=== PATIENT | male | born 1985 | race Caucasian/White ===

== ENCOUNTER 2017-12-25 15:03 | Emergency (ER) | payer BC ==
[2017-12-25] MEDS ORDERED: Metoclopramide IV* 5 MG/ML 2 ML VIAL IV ONE (15:19)
[2017-12-25] MEDS ORDERED: diPHENhydraMINE IV* 50 MG/ML 1 ml VIAL (BENADRYL) IV ONE (15:19)
[2017-12-25] MEDS ORDERED: NS 0.9% 1000 ML* 1,000 ML IV ONE (15:19)
[2017-12-25] MEDS ORDERED: Ketorolac INJ* 30 MG/ML 1 ML VIAL IV PUSH ONE (15:19)
[2017-12-25 16:05] LABS: Hematocrit 44 % (42-52); Hemoglobin 14.8 g/dl (14.0-18.0); Mean Corpuscular HGB Conc 34 g/dl (31-36); Mean Corpuscular Hemoglobin 28 pg (27-31); Mean Corpuscular Volume 83 fL (80-94); Mean Platelet Volume 7.6 um3 (7.4-10.4); Platelet Count 237 10^3/ul (150-450); Red Blood Count 5.24 10^6/ul (4.00-5.40); Red Cell Distribution Width 14 % (10.5-15); White Blood Count 5.6 10^3/ul (3.5-10.8)
[2017-12-25 16:07] LABS: ABS Basophils 0 10^3/ul (0-0.2); ABS Eosinophils 0.2 10^3/ul (0-0.6); ABS Lymphocytes 2.3 10^3/ul (1.0-4.8); ABS Monocytes 0.4 10^3/ul (0-0.8); ABS Neutrophils 2.7 10^3/ul (1.5-7.7); ABS Nucleated RBC 0 10^3/ul; Eosinophil % 3.2 % (0-6); Nucleated Red Blood Cells % 0.1
[2017-12-25 16:15] LABS: EGFR Non-African American 83.3 (>60)
--- NOTE | 2017-12-25 16:32 | RAD ---
Indication: Frontal and maxillary pain. CT of the paranasal sinuses was obtained in the axial plane. Coronal and sagittal reconstructed images were obtained. The frontal sinuses are clear. There is some opacification of the left ethmoid air cells. Sphenoid sinuses are clear. Maxillary sinuses are clear. No nasal septal deviation is noted. No paradoxical turn's of the middle turbinates are noted. No justin bullosa is noted. Ostiomeatal units appear patent bilaterally. No nasal septal deviation is noted. Pterygoid plates and maxilla are unremarkable. Mastoid air cells are clear. Visualized cervical spine is unremarkable. IMPRESSION: Minimal ethmoid sinusitis on the left is noted.
[2017-12-25 17:05] VITALS: BP 119/70
--- NOTE | 2017-12-25 20:19 | ED ---
Aidan Mohan Natalie, scribed for Amandeep Sharma MD on 12/25/17 at 1537 . 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 The headache is located behind his left eye radiating to the parietal region of his head. The throbbing pain is rated 10/10 in severity. The pain is aggravated by light and exertion. The pt currently has a headache. He denies a fever. He has not seen a medical professional since he's been having this pain. He does not have any other medical hx. Smoker. - History Of Current Complaint Chief Complaint: EDHeadache Stated Complaint: HEADACHE/CHEMICAL EXPOSURE Time Seen by Provider: 12/25/17 15:19 Hx Obtained From: Patient Onset/Duration: Sudden Onset, Started days ago, Still Present Initially Headache Was: Initial Pain Scale(0-10)= - 10 Currently Pain Is: Current Pain Scale(0-10)= - 10 Timing: Intermittent, Lasting: Character: Throbbing Location of Headache: Parietal - left, Other: - behind left eye Aggravating Factor: Exertion, Bright Lights Allevating Factors: Nothing Associated Signs And Symptoms: Negative - fever, Other (Noted In Comments) - photophobia - Allergies/Home Medications Allergies/Adverse Reactions: Allergies Allergy/AdvReac Type Severity Reaction Status Date / Time azithromycin [From Zithromax] Allergy Diarrhea Verified 12/25/17 15:25 PMH/Surg Hx/FS Hx/Imm Hx Endocrine/Hematology History: Denies: Hx Diabetes Cardiovascular History: Denies: Hx Congenital Heart Disease, Hx Hypertension Infectious Disease History: No Infectious Disease History: Denies: Traveled Outside the [place] in Last 30 Days - Family History Known Family History: Positive: Diabetes - Social History Alcohol Use: Weekly Substance Use Type: Reports: None Smoking Status (MU): Current Some Day Smoker Review of Systems Negative: Fever Positive: Photophobia Positive: Headache All Other Systems Reviewed And Are Negative: Yes Physical Exam - Summary Physical Exam Summary: Appearance: Well appearing, no pain distress Skin: warm, dry, reflects adequate perfusion Head/face: normal, left sided maxilla tender to percussion, temporal arteries intact Eyes: EOMI, VINCENZO, globes soft ENT: normal Neck: supple, non-tender Respiratory: CTA, breath sounds present Cardiovascular: RRR, pulses symmetrical Abdomen: non-tender, soft Bowel Sounds: present Musculoskeletal: normal, strength/ROM intact Neuro: normal, sensory motor intact, A&Ox3 Triage Information Reviewed: Yes Vital Signs On Initial Exam: Initial Vitals Temp Pulse Resp BP Pulse Ox 98.9 F 60 18 136/91 95 12/25/17 15:14 12/25/17 15:14 12/25/17 15:14 12/25/17 15:14 12/25/17 15:14 Vital Signs Reviewed: Yes Diagnostics - Vital Signs Vital Signs Temp Pulse Resp BP Pulse Ox 12/25/17 15:14 98.9 F 60 18 136/91 95 - Laboratory Lab Results: Lab Results 12/25/17 12/25/17 Range/Units 15:49 15:49 WBC 5.6 (3.5-10.8) 10^3/ul RBC 5.24 (4.00-5.40) 10^6/ul Hgb 14.8 (14.0-18.0) g/dl Hct 44 (42-52) % MCV 83 (80-94) fL MCH 28 (27-31) pg MCHC 34 (31-36) g/dl RDW 14 (10.5-15) % Plt Count 237 (150-450) 10^3/ul MPV 7.6 (7.4-10.4) um3 Neut % (Auto) 48.3 (38-83) % Lymph % (Auto) 40.0 (25-47) % [place] % (Auto) 7.8 H (0-7) % Eos % (Auto) 3.2 (0-6) % Baso % (Auto) 0.7 (0-2) % Absolute Neuts (auto) 2.7 (1.5-7.7) 10^3/ul Absolute Lymphs (auto) 2.3 (1.0-4.8) 10^3/ul Absolute Monos (auto) 0.4 (0-0.8) 10^3/ul Absolute Eos (auto) 0.2 (0-0.6) 10^3/ul Absolute Basos (auto) 0 (0-0.2) 10^3/ul Absolute Nucleated RBC 0 10^3/ul Nucleated RBC % 0.1 Sodium 138 (135-145) mmol/L Potassium 4.3 (3.5-5.0) mmol/L Chloride 105 (101-111) mmol/L Carbon Dioxide 28 (22-32) mmol/L Anion Gap 5 (2-11) mmol/L BUN 13 (6-24) mg/dL Creatinine 1.04 (0.67-1.17) mg/dL Est GFR ( Amer) 100.8 (>60) Est GFR (Non-Af Amer) 83.3 (>60) BUN/Creatinine Ratio 12.5 (8-20) Glucose 96 (70-100) mg/dL Calcium 9.6 (8.6-10.3) mg/dL Result Diagrams: 12/25/17 15:49 12/25/17 15:49 Lab Statement: Any lab studies that have been ordered have been reviewed, and results considered in the medical decision making process. - CT Sinus CT CT Interpretation: Positive (See Comments) - Minimal ethmoid sinusitis on the left is noted. ED physician has reviewed this report. Re-Evaluation - Re-Evaluation Second Eval Re-Evaluation Time: 17:00 Change: Improved - The pt's headache has resolved in the ED. He will be discharged home. Headache Course/Dx - Course Course Of Treatment: Patient with headache, tearing behind the left eye. 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 CT scan of the sinuses shows no significant sinusitis. He was treated with standard treatment here and had full relief of his headache. He will be prescribed as needed promethazine and will follow-up with his primary care physician. - Diagnoses Differential Diagnosis/HQI/PQRI: Sinus Headache, Other - Cluster headache Provider Diagnoses: Cluster headache Discharge - Sign-Out/Discharge Documenting (check all that apply): Discharge/Admit/Transfer - Pt will be discharged home. - Discharge Plan Condition: Improved Disposition: HOME Prescriptions: Promethazine TAB* [Phenergan Tab*] 25 mg PO Q6H PRN #20 tab PRN Reason: headache/nausea Patient Education Materials: Cluster Headache (ED) Referrals: [facility] [Outside] [facility] [Outside] Additional Instructions: Prescribed medication may make you drowsy. Do not drive while taking. Medication can be taken with ibuprofen, Benadryl for more severe symptoms. Taking with water and some caffeine may also help. Return with fever, persistent vomiting, uncontrolled headache, worse or other concerns. - Billing Disposition and Condition Condition: IMPROVED Disposition: Home The documentation as recorded by the Aidan jauregui Natalie accurately reflects the service I personally performed and the decisions made by me, Amandeep Sharma MD.
== END 2017-12-25 17:12 | disposition home or self-care (01) ==
LOC: ED 15:03
DX: G44.009 Cluster headache syndrome, unspecified, not intractable (principal); H53.149 Visual discomfort, unspecified; Z72.0 Tobacco use
CPT/HCPCS: 36415; 70486; 80048; 85025; 96374; 96375; 99283; J1200; J1885; J2765

== ENCOUNTER 2018-05-05 11:11 | Emergency (ER) | payer BC ==
--- NOTE | 2018-05-05 13:04 | UC ---
Lower Extremity/Ankle HPI - HPI Summary HPI Summary: 32 y/o male presents to the urgent care c/o RT ankle pain s/p twisting his ankle and falling 2 days ago. Pt states pain is sharp w/ walking, 9/10 w/o any swelling. Pt has not taking any medications to alleviate symptoms. Pt also states Hx of seasonal allergies for which he takes Loratadine PO and Afrin nasal spray. He has had nasal congestion w/ yellowish nasal discharge for the past month. In the past week he has experienced left ear pain which worsen yesterday. Pt denies numbness or tingling sensation over the Rt ankle of foot, calf pain., SOB, chest pain, abdominal pain, BECERRA, N/V/D, tinnitus or dizziness. - History of Current Complaint Chief Complaint: UCLowerExtremity Stated Complaint: R ANKLE INJURY,EAR PAIN Time Seen by Provider: 05/05/18 13:03 Hx Obtained From: Patient Onset/Duration: Sudden Onset, Lasting Days - 2 days, Still Present, Worse Since - today Severity Initially: Moderate Severity Currently: Moderate Pain Intensity: 9 Pain Scale Used: 0-10 Numeric Aggravating Factor(s): Ambulation Alleviating Factor(s): Rest, Elevation, Ice Able to Bear Weight: Yes - Risk Factors Gout Risk Factors: Negative DVT Risk Factors: Negative Septic Arthritis Risk Factor: Negative - Allergies/Home Medications Allergies/Adverse Reactions: Allergies Allergy/AdvReac Type Severity Reaction Status Date / Time azithromycin [From Zithromax] Allergy Diarrhea Verified 05/05/18 11:37 Home Medications: Home Medications Loratadine [Claritin 10 MG CAP] 1 tab PO DAILY PRN 05/05/18 [History Confirmed 05/05/18] PMH/Surg Hx/FS Hx/Imm Hx Previously Healthy: Yes - Pt denies PMHX - Surgical History Surgical History: Yes Surgery Procedure, Year, and Place: T&A. broken wrist. torn ear drums - Family History Known Family History: Positive: Hypertension, Diabetes - Social History Occupation: Employed Full-time Lives: With Family Alcohol Use: Occasionally Substance Use Type: None Smoking Status (MU): Current Some Day Smoker Type: Cigarettes Amount Used/How Often: once in a while Household Exposure Type: Cigarettes Review of Systems All Other Systems Reviewed And Are Negative: Yes Constitutional: Positive: Negative Skin: Positive: Negative Eyes: Positive: Negative ENT: Positive: Ear Ache - left ear pain, Nasal Discharge - yellowish, Sinus Congestion Respiratory: Positive: Negative Cardiovascular: Positive: Negative Gastrointestinal: Positive: Negative Genitourinary: Positive: Negative Motor: Positive: Negative Neurovascular: Positive: Negative Musculoskeletal: Positive: Decreased ROM - RT ankle, Other: - Rt ankle pain s/p fall Neurological: Positive: Negative Psychological: Positive: Negative Is Patient Immunocompromised?: No Physical Exam - Summary Physical Exam Summary: Vital Signs Reviewed: Yes General: well developed, well nourished obese male, sitting in the examining table w/o any apparent distress Eyes: Positive: Conjunctiva Clear - PERRLA, EOMI, ENT: Positive: Normal ENT inspection, Hearing grossly normal, Pharynx normal, TMs normal Neck: Positive: Supple, Nontender, No Lymphadenopathy Respiratory: Positive: Chest non-tender, Lungs clear, Normal breath sounds, No respiratory distress Cardiovascular: Positive: RRR, No Murmur, Pulses Normal, Brisk Capillary Refill Abdomen Description: Positive: Nontender, No Organomegaly, Soft. Negative: CVA Tenderness (R), CVA Tenderness (L) Bowel Sounds: Positive: Present Musculoskeletal: - Ankle: Pt is able to bear weight and ambulate w/ limping. The R ankle is without obvious asymmetry or deformity when compared to the L ankle. Decreased ROM due to pain. Moderate swelling at the lateral malleolus, with tenderness to palpation. No ecchymosis or bruising observed. Tenderness to palpation over the medial malleolus , no swelling observed. Talar tilt test is negative for ligament laxity to valgus or varus stress. Negative anterior drawer. Peroneal nerve is intact with strong eversion and plantar flexion. Positive sensation over the Rt foot and Rt ankle, positive pulses, capillary refill intact Neurological Exam: Normal Psychological Exam: Normal Skin: warm and dry Triage Information Reviewed: Yes Vital Signs: Initial Vital Signs Temp 98.4 F 05/05/18 11:33 Pulse 82 05/05/18 11:33 Resp 18 05/05/18 11:33 BP 139/88 05/05/18 11:33 Pulse Ox 97 05/05/18 11:33 Lower Extremity Course/Dx - Course Course Of Treatment: 32 y/o male presents to the urgent care c/o RT ankle pain s /p twisting his ankle and falling 2 days ago. Pt states pain is sharp w/ walking , 9/10 w/o any swelling. Pt has not taking any medications to alleviate symptoms. Pt also states Hx of seasonal allergies for which he takes Loratadine PO and Afrin nasal spray. He has had nasal congestion w/ yellowish nasal discharge for the past month. In the past week he has experienced left ear pain which worsen yesterday. Pt denies numbness or tingling sensation over the Rt ankle of foot, calf pain., SOB, chest pain, abdominal pain, BECERRA, N/V/D, tinnitus or dizziness. Hx obtained. Pt w/ left otitis Media on examination. Rt ankle X-ray ordered, Impression: Soft tissue swelling, no acute fracture. Pt most likely with a RT ankle Sprain. Pt immobilized with gel ankle splint to , given crutches to avoid weight bearing, Rx Ibuprofen PO to decrease swelling and pain. Pt advised RICE, take Ibuprofen PO for pain and to f/u with PCP on orthopedic in 1 week if not improvement of symptoms for further treatment. Parents and Pt understood and agreed and left the clinic ambulating w/ the help of crutches. - Differential Dx/Diagnosis Differential Diagnosis/HQI/PQRI: Arthritis, Contusion, Dislocation, Fracture ( Closed), Sprain, Strain, Tendonitis Provider Diagnoses: 1- Rt ankle pain s/p fall. 2- RT ankle sprain. 3- Left otitis Media Discharge - Sign-Out/Discharge Documenting (check all that apply): Patient Departure - D/c home All imaging exams completed and their final reports reviewed: Yes - Discharge Plan Condition: Stable Disposition: HOME Prescriptions: Amoxicillin PO (*) [Amoxicillin 875 MG (*)] 875 mg PO BID #20 tab Ibuprofen TAB* [Motrin TAB* 600 MG] 600 mg PO Q6H PRN #30 tab PRN Reason: Pain Patient Education Materials: Ankle Sprain (ED), Ear Infection (ED) Forms: *Work Release Referrals: [facility] [Outside] - 1 Week Additional Instructions: 1-Please take medications as directed to alleviate pain and swelling. 2-Please apply ice, keep your ankle immobilized with the splint. Avoid too much weight bearing. Elevate your ankle 3- Please f/u with Orthopedic Dr Nicholas or your PCP in 1 week is not improvement of symptoms for further evaluation and treatment. 4-Take Amoxicillin PO as directed for your ear infection. - Billing Disposition and Condition Condition: STABLE Disposition: Home
[2018-05-05 13:42] VITALS: BP 133/86
== END 2018-05-05 14:38 | disposition home or self-care (01) ==
LOC: UCEAST 11:11
DX: S93.401A Sprain of unspecified ligament of right ankle, initial encounter (principal); H66.92 Otitis media, unspecified, left ear; M25.571 Pain in right ankle and joints of right foot; Z88.1 Allergy status to other antibiotic agents; F17.210 Nicotine dependence, cigarettes, uncomplicated; X50.1XXA Overexertion from prolonged static or awkward postures, initial encounter; Y92.9 Unspecified place or not applicable; W19.XXXA Unspecified fall, initial encounter
CPT/HCPCS: 99213; G0463

== ENCOUNTER 2019-07-13 10:21 | Emergency (ER) | payer BC, OTHER ==
[2019-07-13 10:44] VITALS: BP 129/80
--- NOTE | 2019-07-13 11:43 | UC ---
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 No fever, feels systemically well, and has no hx of gout and low risk factors for gout. No associated injury or abrasion. - History Of Current Complaint Chief Complaint: UCUpperExtremity Stated Complaint: THUMB PAIN Time Seen by Provider: 07/13/19 11:36 Hx Obtained From: Patient Onset/Duration: Sudden Onset, Lasting Days - 2 Pain Intensity: 8 Character Of Pain: Aching, Throbbing Aggravating Factor(s): Movement Alleviating Factor(s): Rest Associated Signs And Symptoms: Positive: Swelling, Redness Related History: Dominant Hand Right - Allergies/Home Medications Allergies/Adverse Reactions: Allergies Allergy/AdvReac Type Severity Reaction Status Date / Time azithromycin [From Zithromax] Allergy Diarrhea Verified 07/13/19 10:45 PMH/Surg Hx/FS Hx/Imm Hx Previously Healthy: Yes - Surgical History Surgical History: Yes Surgery Procedure, Year, and Place: T&A;. RIGHT WRIST FX (CLOSED REDUCTION); - Family History Known Family History: Positive: Cardiac Disease - father of [place], Hypertension, Diabetes - Social History Occupation: Employed Full-time Alcohol Use: Occasionally Substance Use Type: None Smoking Status (MU): Current Some Day Smoker Type: Cigarettes Amount Used/How Often: once in a while Household Exposure Type: Cigarettes Review of Systems All Other Systems Reviewed And Are Negative: Yes Constitutional: Positive: Negative. Negative: Fever, Fatigue Skin: Positive: Negative Eyes: Positive: Negative ENT: Positive: Negative Respiratory: Positive: Negative Cardiovascular: Positive: Negative Gastrointestinal: Positive: Negative Genitourinary: Positive: Negative Motor: Positive: Decreased ROM - left thumb Musculoskeletal: Positive: Arthralgia Neurological: Positive: Negative Psychological: Positive: Negative Is Patient Immunocompromised?: No Physical Exam Triage Information Reviewed: Yes Appearance: Well-Appearing, Pain Distress - mild Vital Signs: Initial Vital Signs Temp 99 F 07/13/19 10:42 Pulse 80 07/13/19 10:42 Resp 20 07/13/19 10:42 BP 129/80 07/13/19 10:42 Pulse Ox 100 07/13/19 10:42 Vital Signs Reviewed: Yes Eye Exam: Normal Neck: Positive: Supple, Nontender, No Lymphadenopathy Respiratory: Positive: Lungs clear, Normal breath sounds Cardiovascular: Positive: RRR, No Murmur Musculoskeletal Exam: Other - left thumb DIP joint with erythema and swelling, very tender to touch with light palpation. Decreased flexion to about 20 degrees at the DIP joint. Musculoskeletal: Positive: ROM Limited @ - left DIP joint. No tenderness in the left wrist, no TTP in the first IP joint. Neurological Exam: Normal Psychological Exam: Normal Diagnostics - Radiology No standard instances Radiology Interpretation Completed By: Radiologist - Patient Name: KORIN BEJARANO Medical Record#: [id number] Ordering Physician: Saba Rao MD Acct.#: [id number] : 1985 Age: 33 Sex: M Location: [facility] Exam Date: 07/13/19 1143 ADM Status: REG ER Order Information: THUMB LEFT Accession Number: [id number] CPT: 94058 History: Pain about the interphalangeal joint of left thumb. COMPARISON: None. TECHNIQUE: 3 radiographic views of the left thumb were obtained. FINDINGS: A 3 x 2 mm ossific structure seen about the dorsal aspect of the left first interphalangeal joint. Anatomic alignment is maintained. The joint spaces are preserved. IMPRESSION: 3 mm ossific structure about the dorsal aspect of the phalangeal joint (indeterminate chronicity). Correlate with point tenderness and consider repeat imaging in 7-10 days. ____ <Electronically signed by Andrew Ulrich MD in OV> 07/13/19 1211 Dictated By: Andrew Ulrich MD Dictated Date/Time: 07/13/19 1209 Transcribed Date/Time: 07/13/19 120 Copy to: CC: Saba Rao MD; No Primary Care Phys,NOPCP Imaging - [facility] Imaging - [facility] Imaging - [facility] [address] [address] ph ([phone]) ph ([phone]) ph ([phone]) This report is only to be considered final once signed by the Provider(s) as displayed in the "<Electronically Signed by >" field (s). Absence of a signature indicates the report is in a draft status and still needs to be finalized. In the event this document was created by someone other than the signing Provider, the individual initiating the document will be listed in the "Entered by:" or "Dictated by:" torres. 1 of 1 Hand/Wrist Course/Dx - Course Course Of Treatment: Most likely dx is cellulitis. Finding on xray does not correlate with painful joint. Will rx cephalexin for likely soft tissue infection, labs order to check WBC and uric acid level given monoarticular swelling. - Differential Dx/Diagnosis Differential Diagnosis/HQI/PQRI: Cellulitis, Gout, Sprain, Strain Provider Diagnosis: Cellulitis of left thumb Discharge ED - Sign-Out/Discharge Documenting (check all that apply): Patient Departure All imaging exams completed and their final reports reviewed: Yes - Discharge Plan Condition: Stable Disposition: HOME Prescriptions: Cephalexin CAP* [Keflex 500 CAP*] 500 mg PO TID #21 cap Patient Education Materials: Cellulitis (ED) Referrals: No Primary Care Phys,NOPCP [Primary Care Provider] - Additional Instructions: The most like cause of the redness and swelling is a soft tissue infection called cellulitis. Begin taking antibiotics and you could choose to use ibuprofen 600mg every 6 hours to ease the pain. Keep your hand elevated. Blood work has been done to rule out gout. The pain and redness should improve in the next 48 hours; follow up if you are not seeing improvement by the thrid day. You will be called if the result of the blood work should change the treatment. - Billing Disposition and Condition Condition: STABLE Disposition: Home
[2019-07-13 19:00] LABS: ABS Eosinophils 0.1 10^3/ul (0-0.6); ABS Monocytes 0.3 10^3/ul (0-0.8); ABS Neutrophils 2.5 10^3/ul (1.5-7.7); Eosinophil % 2.3 %; Hematocrit 45 % (42-52); Lymphocyte % 39.8 %; Mean Corpuscular HGB Conc 35 g/dL (31-36); Mean Corpuscular Hemoglobin 29 pg (27-31); Mean Corpuscular Volume 83 fL (80-94); Mean Platelet Volume 8.2 fL (7.4-10.4); Platelet Count 271 10^3/uL (150-450); Red Blood Count 5.46 10^6 /uL (4.18-5.48); Red Cell Distribution Width 14 % (10-15); White Blood Count 4.9 10^3/uL (3.5-10.8)
[2019-07-13 19:07] LABS: Calcium 9.5 mg/dL (8.6-10.3); Potassium 4.6 mmol/L (3.5-5.0)
[2019-07-13 19:12] LABS: BUN/Creatinine Ratio 10.1 (8-20); EGFR African American 94.9 (>60); EGFR Non-African American 78.4 (>60); Uric Acid 6.3 mg/dL (4.4-7.6)
--- NOTE | 2019-07-14 10:50 | UC ---
- Progress Note Progress Note: Progress Note: Patient with cellulites. CBC, CMP are within normal limits. No change in treatment. Brock Seals MD Course/Dx - Diagnoses Provider Diagnoses: Cellulitis of left thumb Discharge ED - Sign-Out/Discharge Documenting (check all that apply): Post-Discharge Follow Up All imaging exams completed and their final reports reviewed: Yes - Discharge Plan Condition: Stable Disposition: HOME Prescriptions: Cephalexin CAP* [Keflex 500 CAP*] 500 mg PO TID #21 cap Patient Education Materials: Cellulitis (ED) Referrals: No Primary Care Phys,NOPCP [Primary Care Provider] - Additional Instructions: The most like cause of the redness and swelling is a soft tissue infection called cellulitis. Begin taking antibiotics and you could choose to use ibuprofen 600mg every 6 hours to ease the pain. Keep your hand elevated. Blood work has been done to rule out gout. The pain and redness should improve in the next 48 hours; follow up if you are not seeing improvement by the thrid day. You will be called if the result of the blood work should change the treatment. - Billing Disposition and Condition Condition: STABLE Disposition: Home
== END 2019-07-13 13:28 | disposition home or self-care (01) ==
LOC: UCEAST 10:21
DX: L03.012 Cellulitis of left finger (principal); F17.210 Nicotine dependence, cigarettes, uncomplicated; Z88.1 Allergy status to other antibiotic agents
CPT/HCPCS: 36415; 80048; 84550; 85025; 99212; G0463

== ENCOUNTER 2019-09-03 11:08 | Emergency (ER) | payer BC ==
[2019-09-03 11:28] VITALS: BP 134/80
--- NOTE | 2019-09-03 12:28 | ED ---
Throat Pain/Nasal Congestion - HPI Summary HPI Summary: 33 yo WM p/w sore throat still refractory after having the the flu last week, got it from his , they both got over the flu but pt stilll c/o of pain in throat, denies f/c/cough - History of Current Complaint Chief Complaint: UCGeneralIllness Time Seen by Provider: 09/03/19 11:58 Hx Obtained From: Patient Hx From Patient Unobtainable Due To: Dementia Onset/Duration: Lasting Days Severity: Moderate Cough: None - Epiglottits Risk Factors Epiglottis Risk Factors: Negative - Allergies/Home Medications Allergies/Adverse Reactions: Allergies Allergy/AdvReac Type Severity Reaction Status Date / Time azithromycin [From Zithromax] Allergy Diarrhea Verified 07/13/19 10:45 Home Medications: Home Medications Ibuprofen TAB* [Motrin TAB* 600 MG] 600 mg PO Q6H PRN #30 tab 05/05/18 [Rx Confirmed 07/13/19] Loratadine [Claritin 10 MG CAP] 1 tab PO DAILY PRN 05/05/18 [History Confirmed 07/13/19] Cephalexin CAP* [Keflex 500 CAP*] 500 mg PO TID #21 cap 07/13/19 [Rx] PMH/Surg Hx/FS Hx/Imm Hx Previously Healthy: Yes Endocrine/Hematology History: Denies: Hx Diabetes Cardiovascular History: Denies: Hx Congenital Heart Disease, Hx Hypertension, Hx Pacemaker/ICD Respiratory History: Denies: Hx Asthma History: Denies: Hx Renal Disease Sensory History: Denies: Hx Hearing Aid Psychiatric History: Denies: Hx Panic Disorder - Surgical History Surgery Procedure, Year, and Place: T&A;. RIGHT WRIST FX (CLOSED REDUCTION); Infectious Disease History: No Infectious Disease History: Denies: Traveled Outside the [place] in Last 30 Days - Family History Known Family History: Positive: Cardiac Disease - father of [place], Hypertension, Diabetes - Social History Alcohol Use: Occasionally Substance Use Type: Reports: None Smoking Status (MU): Current Some Day Smoker Type: Cigarettes Amount Used/How Often: once in a while Review of Systems Constitutional: Negative Eyes: Negative Positive: Sore Throat Cardiovascular: Negative Respiratory: Negative Gastrointestinal: Negative Genitourinary: Negative Musculoskeletal: Negative Skin: Negative Neurological/Mental Status: Negative Positive: Headache Psychological: Normal All Other Systems Reviewed And Are Negative: Yes Physical Exam - Summary Physical Exam Summary: Vital Signs Reviewed: Yes Eye Exam: Normal Eyes: Positive: Conjunctiva Clear ENT: Positive: mild pharyngeal erythema without exudates Neck: Positive: Supple Respiratory Exam: Normal Respiratory: Positive: Lungs clear, Normal breath sounds. Negative: Crackles, Rhonchi, Stridor, Wheezing Cardiovascular Exam: Normal, RRR, S1, S2 Abdomen: NT/ND Musculoskeletal Exam: Normal Neurological Exam: Normal Psychological Exam: Normal Skin Exam: Normal Triage Information Reviewed: Yes Vital Signs On Initial Exam: Initial Vitals Temp Pulse Resp BP Pulse Ox 37.0 C 74 16 134/80 100 09/03/19 11:25 09/03/19 11:25 09/03/19 11:25 09/03/19 11:25 09/03/19 11:25 Diagnostics - Vital Signs Vital Signs Temp Pulse Resp BP Pulse Ox 09/03/19 11:25 37.0 C 74 16 134/80 100 - Laboratory Lab Statement: Any lab studies that have been ordered have been reviewed, and results considered in the medical decision making process. EENT Course/Dx - Diagnoses Provider Diagnoses: Pharyngitis Discharge ED - Sign-Out/Discharge Documenting (check all that apply): Patient Departure All imaging exams completed and their final reports reviewed: No Studies - Discharge Plan Condition: Stable Disposition: HOME - Billing Disposition and Condition Condition: STABLE Disposition: Home
[2019-09-05 12:04] LABS: EBV Capsid Ag IgG Ab Negative (Negative); EBV Capsid Ag IgM Ab Negative (Negative); Epstein-Barr Nuclear Antigen Negative (Negative)
== END 2019-09-03 13:03 | disposition home or self-care (01) ==
LOC: UCEAST 11:08
DX: J02.9 Acute pharyngitis, unspecified (principal); F17.210 Nicotine dependence, cigarettes, uncomplicated; R51 Headache; Z88.1 Allergy status to other antibiotic agents
CPT/HCPCS: 36415; 86308; 86664; 86665; 87651; 99211; G0463